=== PATIENT | female | born 1960 | race African-American/Black ===

== ENCOUNTER 2017-08-22 10:39 | Emergency (ER) | payer OTHER, SELFPAY ==
[2017-08-22 11:12] LABS: #Basophils 0.1 thou/uL (0.0-0.2); #Eosinphils 0.2 thou/uL (0.0-0.7); #Lymphocytes 1.5 thou/uL (1.20-3.40); #Monocytes 0.4 thou/uL (0.11-0.59); #Neutrophils 1.9 thou/uL (1.40-6.50); %Basophils 2.3 % (0.0-1.0); %Eosinophils 4.5 % (0.0-10.0); %Lymphocytes 37.6 % (21.0-51.0); %Monocytes 9.1 % (0.0-10.0); %Neutrophils 46.6 % (42.0-75.0); Hemoglobin 15.2 g/dL (12.0-16.0); Mean Corpuscular HGB CONC 32.7 g/dL (32.0-36.0); Mean Corpuscular Hemoglobin 29.6 pg (27.0-31.0); Mean Corpuscular Volume 90.6 fl (81.0-99.0); Mean Platelet Volume 7.9 fL (7.4-10.4); Platelet Count 269 thou/uL (130-400); RBC Distribution Width 12.2 % (11.5-14.5); Red Blood Cell (RBC) Count 5.13 mill/uL (4.20-5.40); White Blood Cell (WBC) Count 4.1 thou/uL (4.8-10.8)
[2017-08-22] MEDS ORDERED: hydrALAZINE 20 MG/ML VIAL ONE (11:15)
[2017-08-22 11:38] LABS: Troponin I Less than 0.010 ng/mL (< 0.028)
[2017-08-22 11:51] LABS: Chloride 106 mmol/L (98-107); Potassium 5.3 mmol/L (3.5-5.1); Sodium 139 mmol/L (136-145)
[2017-08-22 11:52] LABS: Glucose 98 mg/dL (70-105)
[2017-08-22 11:53] LABS: Anion Gap 17 mmol/L (10-20); Carbon Dioxide 21 mmol/L (22-29)
[2017-08-22 11:55] LABS: Calc. Creatinine Clearance 0 mL/min (70-130); Estimated GFR-MDRD 70
[2017-08-22 11:56] LABS: BUN (Urea Nitrogen) 19 mg/dL (9.8-20.1)
== END 2017-08-22 12:58 | disposition home or self-care (01) ==
LOC: ERS 10:39
DX: R00.1 Bradycardia, unspecified (principal); T44.7X5A Adverse effect of beta-adrenoreceptor antagonists, initial encounter; I10 Essential (primary) hypertension; F19.10 Other psychoactive substance abuse, uncomplicated; F32.9 Major depressive disorder, single episode, unspecified; F17.200 Nicotine dependence, unspecified, uncomplicated; Z71.6 Tobacco abuse counseling
CPT/HCPCS: 80048; 84484; 85025; 93005; 96374; 99406; J0360

== ENCOUNTER 2018-01-20 09:46 | Observation (INO) | payer SELFPAY ==
[2018-01-20 10:16] LABS: #Basophils 0.1 thou/uL (0.0-0.2); #Eosinphils 0.7 thou/uL (0.0-0.7); #Lymphocytes 1.5 thou/uL (1.20-3.40); #Monocytes 0.4 thou/uL (0.11-0.59); #Neutrophils 2.7 thou/uL (1.40-6.50); %Eosinophils 13.2 % (0.0-10.0); %Lymphocytes 27.7 % (21.0-51.0); %Monocytes 7.2 % (0.0-10.0); %Neutrophils 50.9 % (42.0-75.0); Hemoglobin 14.8 g/dL (12.0-16.0); Mean Corpuscular HGB CONC 33.1 g/dL (32.0-36.0); Mean Corpuscular Hemoglobin 30.5 pg (27.0-31.0); Mean Corpuscular Volume 92.2 fL (78.0-98.0); Mean Platelet Volume 8.2 fL (7.4-10.4); Platelet Count 347 thou/uL (130-400); RBC Distribution Width 11.7 % (11.5-14.5); Red Blood Cell (RBC) Count 4.85 mill/uL (4.20-5.40); White Blood Cell (WBC) Count 5.2 thou/uL (4.8-10.8)
[2018-01-20 10:41] LABS: CKMB 2.7 ng/mL (0-6.6); Troponin I Less than 0.010 ng/mL (< 0.028)
--- NOTE | 2018-01-20 10:47 | CT ---
CT BRAIN WITHOUT CONTRAST: HISTORY: Slurred speech and left-sided facial droop. FINDINGS: No evidence of acute infarct, hemorrhage, midline shift, or abnormal extraaxial fluid collections is seen. The ventricular size is normal and the basilar cistern is patent. 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 The bony calvarium is intact. The visualized paranasal sinuses and mastoi d air cells are well aerated. IMPRESSION: No CT evidence of acute intracranial process. POS: [facility]
[2018-01-20] MEDS ORDERED: Labetalol HCl 100 MG/20 ML VIAL ONE (11:05)
[2018-01-20 11:06] LABS: AST (SGOT) 25 U/L (5-34)
[2018-01-20 11:07] LABS: ALT (SGPT) 21 U/L (8-55); Alkaline Phosphatase 95 U/L (40-150); Anion Gap 15 mmol/L (10-20); BUN (Urea Nitrogen) 18 mg/dL (9.8-20.1); Bilirubin, Total 0.2 mg/dL (0.2-1.2); CK (CPK) 111 U/L (29-168); Calc. Creatinine Clearance 0 mL/min (70-130); Calcium 9.7 mg/dL (7.8-10.44); Carbon Dioxide 26 mmol/L (22-29); Chloride 104 mmol/L (98-107); Estimated GFR-MDRD 87; Globulin 3.4 g/dL (2.4-3.5); Glucose 130 mg/dL (70-105); Potassium 4.2 mmol/L (3.5-5.1); Protein, Total 7.4 g/dL (6.0-8.3); Sodium 141 mmol/L (136-145)
[2018-01-20 13:12] LABS: Amphetamine Not Detected (NotDetected); Barbiturates Screen Not Detected (NotDetected); Benzodiazepine Screen Not Detected (NotDetected); Cocaine Metabolite Screen Detected (NotDetected); Medtox Control Line Valid? VALID (VALID); Medtox Reader # READER 4; Methadone Not Detected (NotDetected); Methamphetamine Not Detected (NotDetected); Opiate Screen Not Detected (NotDetected); Oxycodone Screen Not Detected (NotDetected); Phencyclidine (PCP) Not Detected (NotDetected); THC/Cannabinoid Screen Not Detected (NotDetected); Tricyclic Screen Not Detected (NotDetected)
[2018-01-20] MEDS ORDERED: Sodium Chloride 0.9% 1,000 ML IV SCH (13:33)
[2018-01-20] MEDS ORDERED: Ondansetron HCl/PF 4 MG/2 ML Vial IVP PRN (13:33)
[2018-01-20] MEDS ORDERED: Ondansetron ODT 4 MG TAB SL PRN (13:33)
[2018-01-20] MEDS ORDERED: Acetaminophen 325 MG TAB PO PRN (13:33)
[2018-01-20 13:55] LABS: Troponin I Less than 0.010 ng/mL (< 0.028)
[2018-01-20 15:19] VITALS: BMI 16.8
[2018-01-20 16:58] LABS: Troponin I Less than 0.010 ng/mL (< 0.028)
[2018-01-20] MEDS ORDERED: hydrALAZINE 20 MG/ML VIAL SLOW IVP PRN (19:14)
[2018-01-20] MEDS ORDERED: Labetalol HCl 100 MG/20 ML VIAL SLOW IVP PRN (19:14)
[2018-01-20] MEDS ORDERED: Atorvastatin Calcium 40 MG TAB PO SCH (21:00)
--- NOTE | 2018-01-20 22:24 | ULT ---
CAROTID ULTRASOUND: 01/20/18 COMPARISON: None. HISTORY: TIA. TECHNIQUE: Multiplanar dyson scale and color doppler images were obtained in a carotid ultrasound. Spectral anal ysis of the doppler waveforms of the visualized vessels were performed. FINDINGS: No significant calcified plaque is seen surrounding either carotid bifurcation. The doppler waveforms are normal bilaterally. Peak systolic velocity in the right ICA is 98 cm/s. Peak systolic velocity in the right CCA is 60 cm/ s. The right ICA/CCA ratio is 1.6. Peak systolic velocity in the left ICA is 67 cm/s. Peak systolic velocity in the left CCA is 67 cm/s. The left ICA/CCA ratio is 1.0. Both vertebral arteries demonstrate antegrade flow without focal stenosis. IMPRESSION: No evidence of hemodynamically significant stenosis. POS: [facility]
--- NOTE | 2018-01-21 02:36 | HP ---
DATE OF ADMISSION: 01/20/2018 PRIMARY CARE PROVIDER: [facility]. CHIEF COMPLAINT: Facial droop and difficulty with speech. HISTORY OF PRESENT ILLNESS: This is a 57-year-old -Serbian female who presents to [facility] complaining of approximately 2 week history of intermittent facial drooping, paresthesias and slurred speech. The patient had noticed symptoms worsening over the last 48-72 hour s. The patient admitted that her blood pressure has been erratic and admits to taking amlodipine 5 m g daily. The patient states she had intermittent difficulty finding words and forming them. The pat carolee states she became concerned given that her mother of complications of a stroke and she is n ow caring for her brother who has also had complications of a stroke. The patient denied any recent fall, trauma, injury, visual disturbance or unilateral weakness of her extremities. The patient admi ts to intermittent use of aspirin, but not on a regular basis. The patient also states a prior histo ry of hyperlipidemia, previously treated with oral medications, now discontinued. The patient does a dmit to smoking up to a pack of cigarettes daily. In the emergency room, the patient underwent gener al evaluation including CT of the brain showing no acute intracranial process. The patient was noted with hypertension with blood pressures in the 170s/90s. The patient received IV labetalol, aspirin 324 mg and intravenous normal saline x1 liter. The patient was transferred to the stroke unit for fu rther observation. PAST MEDICAL HISTORY: 1. Tobacco abuse. 2. Cocaine abuse. 3. Hypertension. 4. Noncompliance. 5. History of paroxysmal atrial fibrillation on chronic anticoagulation with Coumadin, currently, di scontinued. 6. Hyperlipidemia. PAST SURGICAL HISTORY: Status post section. CURRENT MEDICATIONS: Amlodipine 5 mg p.o. daily. ALLERGIES: ABEL INHIBITORS. FAMILY HISTORY: Mother and brother with history of CVA. SOCIAL HISTORY: Patient resides in [place], [place]. Unemployed. Smokes up to a pack of cigarettes elaine ly. Admits to cocaine use. Occasional alcohol use. REVIEW OF SYSTEMS: The following complete review of systems was negative, unless otherwise mentioned in the HPI or below: Constitutional: Weight loss or gain, ability to conduct usual activities. Sk in: Rash, itching. Eyes: Double vision, pain. ENT/Mouth: Nose bleeding, neck stiffness, pain, te nderness. Cardiovascular: Palpitations, dyspnea on exertion, orthopnea. Respiratory: Shortness of breath, wheezing, cough, hemoptysis, fever or night sweats. Gastrointestinal: Poor appetite, abdom inal pain, heartburn, nausea, vomiting, constipation, or diarrhea. Genitourinary: Urgency, frequenc y, dysuria, nocturia. Musculoskeletal: Pain, swelling. Neurologic/Psychiatric: Anxiety, depressio n. Allergy/Immunologic: Skin rash, bleeding tendency. PHYSICAL EXAMINATION: VITAL SIGNS: On admission, blood pressure 149/100, pulse 62, respiratory rate 16, temperature 97.7 d egrees Fahrenheit, O2 saturation 98% on room air. GENERAL APPEARANCE: This is a 57-year-old -Serbian female, alert and oriented x3, pleasant, conversant, in no acute distress. HEENT: Pupils are equal, round, and reactive to light and accommodation. Extraocular muscles are in tact. No scleral icterus, no conjunctival injection. Nares patent. OP is clear. Teeth in fair rep air. NECK: Supple, no cervical adenopathy, no thyromegaly, no carotid bruits, no JVD appreciated. Cervic al spine with full active and passive range of motion. No meningeal signs appreciated. CHEST: Lungs are clear to auscultation bilaterally. CARDIOVASCULAR: S1, S2, without noted murmur, rub or gallop. ABDOMEN: Flat, soft, nontender, nondistended. Bowel sounds are positive in all four quadrants. The re is no hepatosplenomegaly, no abdominal bruits, no rebound or guarding appreciated. EXTREMITIES: Warm and dry with fair turgor. No clubbing, cyanosis or asymmetric edema appreciated. Pulses are palpable distally at the dorsalis pedis, posterior tibial, and popliteal arteries bilater ally. Capillary refill less than 2 seconds. NEUROLOGIC: Cranial nerves II-XII are grossly intact. No focal or lateralizing signs appreciated. PERTINENT LABORATORY AND X-RAY FINDINGS: Basic metabolic profile within normal limits. LFTs within normal limits. Troponin I negative x3. CBC within normal limits. Urine drug screen positive for co haroon. On 01/20/2018, plasma alcohol level less than 10. CT of the brain without contrast dated 01/20/2018 showed no acute intracranial process. EKG dated 01/20/2018 by my interpretation shows a sinus mechan ism with heart rates in the 60s. Attenuated R waves noted in the precordial leads. Normal axis. No acute ST-T wave changes appreciated. ASSESSMENT AND PLAN: 1. Transient ischemic attack. Suspected given patient's history, we will place in observation statu s on the stroke unit and proceed with general stroke rule out. Check MRI of the brain in the a.m. [facility] carotid Doppler study and 2D transthoracic echocardiogram. Check fasting lipid profile. Contin ue aspirin 81 mg p.o. daily. 2. Hypertension, labile. Suspect due to noncompliance in conjunction with cocaine use. We will con tinue amlodipine 10 mg p.o. daily. Serial blood pressure monitoring and titrate to optimal response. 3. Tobacco use. We will offer smoking cessation resources prior to discharge. 4. Cocaine abuse. We will offer resources regarding cessation programs on an outpatient basis. 5. Prophylaxis. Sequential compression devices while in bed. Pepcid 20 mg p.o. b.i.d. 6. Code status is full. Surrogate medical decision maker is the patient's daughter.
[2018-01-21] MEDS ORDERED: Aspirin 81 mg Enteric Coated Tablet PO SCH (09:00)
--- NOTE | 2018-01-21 10:22 | MRI ---
MRI BRAIN WITHOUT CONTRAST: Date: 01/21/18 HISTORY: Slurred speech with left-sided facial droop, TIA. FINDINGS: Correlation is made with the previous day's CT scan. No restricted diffusion is seen. There are foci of T2 prolongation in the periventricular white matte r consistent with mild chronic small vessel ischemic disease. Ventricular size is normal and the basi lar cisterns are patent. No evidence of infarct, hemorrhage, midline shift, or abnormal extra-axial f luid collections are seen. No tonsillar herniation is seen. IMPRESSION: No evidence of acute intracranial process. POS: [facility]
[2018-01-21 11:34] VITALS: TEMP 97.3
[2018-01-21 13:19] VITALS: BP 133/93
--- NOTE | 2018-01-22 02:02 | DIS ---
DATE OF ADMISSION: 01/20/2018 DATE OF DISCHARGE: 01/21/2018 DISCHARGE DIAGNOSES: 1. Hypertensive urgency, resolved. 2. Hypertension, labile. 3. Tobacco abuse. 4. Cocaine abuse. CONSULTATIONS: None. PERTINENT LABORATORY AND X-RAY FINDINGS: Complete metabolic profile within normal limits. Troponin I negative x3. Total cholesterol 186, triglycerides 57, HDL 61, LDL 114. CBC within normal limits. Urine drug screen positive for cocaine on 01/20/2018. CT of the brain without contrast dated 2017, showed no acute intracranial process. Carotid Doppler study dated 01/20/2018, showed no focal stenosis. MRI of the brain dated 01/21/2018, showed chronic ischemic white matter changes without ac [place] process. HOSPITAL COURSE: The patient was observed on the stroke unit after initially presenting with facial paresthesias and questionable dysarthria. The patient underwent general stroke protocol including CT and MRI imaging of the brain, showing no evidence of infarct. The patient underwent a carotid Doppl er study evaluation showing no focal stenosis. The patient was noted with labile hypertension with i nitiation of metoprolol 12.5 mg b.i.d. The patient will need additional titration of her antihyperte nsive regimen on an ongoing basis after discharge. No current evidence to suggest an acute event suc h as TIA or CVA. The patient given education and caution regarding ongoing cocaine use and its ramif ications for uncontrolled hypertension and potential for CVA. I have examined the patient at the dominguez e of discharge and discussed followup instructions. The patient overall clinically stable and ready for discharge on 01/21/2018. DISCHARGE MEDICATIONS: 1. Enteric coated aspirin 81 mg 1 tab p.o. daily. 2. Metoprolol tartrate 12.5 mg p.o. b.i.d. FOLLOWUP: The patient may follow up with [facility] in 7-10 days after discharge. CONDITION ON DISCHARGE: Stable. ACTIVITY: Ad justin. DIET: Heart healthy. CODE STATUS: FULL. DISPOSITION: Home, 01/21/2018.
== END 2018-01-21 14:57 | disposition home or self-care (01) ==
LOC: ERS 09:46 → 2SE 11:21
PROVIDERS: ADMIT Family Medicine; ATTEND Family Medicine
DX: I16.0 Hypertensive urgency (principal); R29.810 Facial weakness; R47.81 Slurred speech; F17.210 Nicotine dependence, cigarettes, uncomplicated; F14.10 Cocaine abuse, uncomplicated; I10 Essential (primary) hypertension; I48.0 Paroxysmal atrial fibrillation; E78.5 Hyperlipidemia, unspecified; Z79.899 Other long term (current) drug therapy; Z88.8 Allergy status to other drugs, medicaments and biological substances; Z91.19 Patient's noncompliance with other medical treatment and regimen
CPT/HCPCS: 36415; 70450; 70551; 80053; 80061; 80306; 80307; 82553; 84484; 85025; 93005; 93880; 96361; 96374; 96376; G0378

== ENCOUNTER 2018-08-10 15:33 | Observation (INO) | payer SELFPAY ==
[2018-08-10] MEDS ORDERED: Acetaminophen 500 MG TAB ONE (15:45)
--- NOTE | 2018-08-10 15:57 | RAD ---
FPortable frontal chest radiograph: 08/10/2018 COMPARISON: 09/17/2016 HISTORY: Chest pain, hypertension FINDINGS: Mild increased linear interstitial density. Minimal hazy density in the costophrenic angle on the right noted, likely on the basis of volume loss. Heart and mediastinal contours are stable. No pneumothorax, pleural fluid, focal consolidation, or alveolar edema. IMPRESSION: No acute findings.
[2018-08-10] MEDS ORDERED: Proparacaine 0.5% Opth 15 ML BOT ONE (16:03)
[2018-08-10 16:04] LABS: Bilirubin Negative (Negative); Blood, Urine Negative (Negative); Clarity CLEAR (Clear); Glucose, Urine (Dipstick) Negative (Negative); Leukocyte Negative (Negative); Nitrite Negative (Negative); Protein, Urine (Dipstick) Negative (Neg-Trace); Specific Gravity, Urine 1.003 (1.002-1.036); Urobilinogen 0.2 mg/dL (0.2-1.0)
[2018-08-10 16:32] LABS: #Basophils 0.1 thou/uL (0.0-0.2); #Eosinphils 0.5 thou/uL (0.0-0.7); #Lymphocytes 1.4 thou/uL (1.20-3.40); #Monocytes 0.4 thou/uL (0.11-0.59); #Neutrophils 2.4 thou/uL (1.40-6.50); %Basophils 2.3 % (0.0-1.0); %Eosinophils 10.6 % (0.0-10.0); %Lymphocytes 29.7 % (21.0-51.0); %Monocytes 7.5 % (0.0-10.0); %Neutrophils 49.9 % (42.0-75.0); Hemoglobin 12.6 g/dL (12.0-16.0); Mean Corpuscular Hemoglobin 28.6 pg (27.0-31.0); Mean Corpuscular Volume 89.4 fL (78.0-98.0); Platelet Count 280 thou/uL (130-400); RBC Distribution Width 12.7 % (11.5-14.5); Red Blood Cell (RBC) Count 4.42 mill/uL (4.20-5.40); White Blood Cell (WBC) Count 4.9 thou/uL (4.8-10.8)
[2018-08-10] MEDS ORDERED: Nitroglycerin 2% Ointment 1 INCH/1 GM Packet ONE (16:41)
[2018-08-10 16:54] LABS: ALT (SGPT) 19 U/L (8-55); AST (SGOT) 27 U/L (5-34); Alkaline Phosphatase 111 U/L (40-150); Anion Gap 10 mmol/L (10-20); BUN (Urea Nitrogen) 10 mg/dL (9.8-20.1); Bilirubin, Total 0.3 mg/dL (0.2-1.2); CK (CPK) 460 U/L (29-168); Calc. Creatinine Clearance 0 mL/min (70-130); Calcium 9.9 mg/dL (7.8-10.44); Carbon Dioxide 32 mmol/L (22-29); Chloride 99 mmol/L (98-107); Estimated GFR-MDRD Greater than 90; Globulin 2.7 g/dL (2.4-3.5); Glucose 100 mg/dL (70-105); Lipase 43 U/L (8-78); Potassium 4.9 mmol/L (3.5-5.1); Protein, Total 6.7 g/dL (6.0-8.3); Sodium 136 mmol/L (136-145)
[2018-08-10] MEDS ORDERED: Ondansetron PF 4 MG/2 ML Vial IVP PRN (17:48)
[2018-08-10] MEDS ORDERED: Bisacodyl 5 MG TAB PO PRN (17:48)
[2018-08-10] MEDS ORDERED: cloNIDine 0.1 MG TAB PO PRN (17:48)
[2018-08-10] MEDS ORDERED: Senokot S 8.6-50 MG TAB PO PRN (17:48)
[2018-08-10] MEDS ORDERED: Nitroglycerin 0.4 MG TAB (25 Tab Bottle) PO PRN (17:48)
[2018-08-10] MEDS ORDERED: Nitroglycerin 0.4 MG TAB (25 Tab Bottle) SL PRN (17:48)
[2018-08-10] MEDS ORDERED: Sodium Chloride 0.65% Nasal 44 ML BOT EA NARE PRN (17:48)
[2018-08-10] MEDS ORDERED: Acetaminophen 500 MG TAB PO PRN (17:48)
[2018-08-10] MEDS ORDERED: hydrALAZINE 20 MG/ML VIAL SLOW IVP PRN (17:48)
[2018-08-10] MEDS ORDERED: Benzonatate 100 MG CAP PO PRN (17:48)
[2018-08-10 18:11] LABS: Alcohol 10 mg/dL (Less than 10); Salicylate Less than 8.0 mg/dL (15.0-30.0)
[2018-08-10 18:30] LABS: Amphetamine Not Detected (NotDetected); Barbiturates Screen Not Detected (NotDetected); Benzodiazepine Screen Not Detected (NotDetected); Cocaine Metabolite Screen Detected (NotDetected); Medtox Reader # READER 1; Methadone Not Detected (NotDetected); Methamphetamine Not Detected (NotDetected); Opiate Screen Not Detected (NotDetected); Phencyclidine (PCP) Not Detected (NotDetected); THC/Cannabinoid Screen Not Detected (NotDetected); Tricyclic Screen Not Detected (NotDetected)
[2018-08-10 18:31] LABS: Medtox Control Line Valid? VALID (VALID); Oxycodone Screen Not Detected (NotDetected)
[2018-08-10] MEDS ORDERED: NIFEdipine XL 30 MG TAB PO SCH (19:30)
[2018-08-10 19:49] VITALS: BMI 20.6
--- NOTE | 2018-08-10 20:07 | HP ---
PRIMARY CARE PHYSICIAN: [facility]. CHIEF COMPLAINT: Chest pain and uncontrolled high blood pressure. HISTORY OF PRESENTING ILLNESS: Ms. Darling is a 58-year-old female with known history of hypertension as well as cocaine abuse, presented to the emergency room with above-mentioned complaint. History is mainly obtained by the patient herself, and electronic medical records have been reviewed. She was last seen on our facility in November 2017 when she had a negative workup for stroke. Ms. Darling reports that for the last 2 weeks, she has been having severe 7/10 intensity chest pain in the left side going to her right side anteriorly. It was not associated with any dizziness, sweating, or palpitations, but she has been having significant vision changes in her right eye. She is or already legally blind in her left eye. She is also experiencing headache, nausea, pain in the neck as well as pain in the right side of the chest. She ran out of her blood pressure medications about 3 days ago. She was on metoprolol. She also admits of using cocaine again about 3 days ago. Upon presentation to the emergency room today, she was found to have uncontrolled hypertension with blood pressure 181/119 and later increasing up to 200/130. She was given nitroglycerin paste, and her symptoms did get better. Because of her complaints of vision changes in her right eye: ER consulted Ophthalmology, Dr. Avinash Anaya. He has seen the patient in the ER. Her right eye pressure was found to be elevated to 55. She was given timolol and pilocarpine and proparacaine drops in the ER by Dr. Anaya. She reports improvement in her visual symptoms. Her blood pressure is under better control as well. Her EKG did not show any acute changes, and cardiac enzymes were unremarkable. Now, she was being admitted for further evaluation and care for chest pain and rule out ACS. She has had last workup done in the form of nuclear medicine stress test in 2017, which was negative. She also had an echocardiogram done in 2017, which showed EF of 65% to 70% and grossly stable and normal cardiac function. She was found to have [id number] tricuspid regurgitation at that time. PAST MEDICAL HISTORY: 1. Hypertension. 2. Drug abuse, mainly cocaine. 3. Medication noncompliance. 4. Tobacco abuse. 5. History of paroxysmal atrial fibrillation. She was on Coumadin, but was taken off it eventually. 6. Dyslipidemia. PAST SURGICAL HISTORY: section. CURRENT MEDICATIONS: Metoprolol twice a day, but she does not know the dose, and she has not been taking it for the last few days. ALLERGIES: ABEL INHIBITORS. FAMILY HISTORY: Mother and brother had history of CVA. SOCIAL HISTORY: She is unemployed and smokes up to half to one pack of cigarettes daily. Admits to cocaine use. She is unemployed. REVIEW OF SYSTEMS: A 14-point review of systems is done. It is negative except for those mentioned in the History and Physical. LABORATORY EXAMINATION: Her labs today show CBC unremarkable. Serum chemistry showed bicarb at 32, creatine kinase 460. Troponin is less than 0.010. BNP is normal at 14. Urinalysis unremarkable. Urine drug screen is positive for cocaine. Plasma alcohol and salicylate levels are within normal limits except for plasma alcohol level slightly elevated at 10. Chest x-ray by my review shows no evidence to suggest pleural effusion, edema, or infiltrate. A 12-lead EKG by my review shows normal sinus rhythm without any acute ST or T-wave changes. QTc interval is 457 milliseconds. Left atrial enlargement is seen. PHYSICAL EXAMINATION: VITAL SIGNS: Upon presentation, blood pressure 181/119, pulse of 90, respirations 18, saturating 95% on room air, and temperature 98.1. GENERAL: No acute distress. Lying comfortably in bed. She is awake, alert, and oriented x3. HEENT: Mucous membrane is moist and pink. No oropharyngeal exudate or erythema. Head is normocephalic and atraumatic. Pupils are equal and reactive to light and accommodation. Extraocular movements intact. NECK: Supple without any lymphadenopathy, JVD, or bruit. CHEST: Clear to auscultation without any wheezing, rales, or rhonchi. HEART: Rate and rhythm are regular without any murmurs, rubs, or gallops. ABDOMEN: Soft, nontender, and nondistended with positive bowel sounds. EXTREMITIES: Free of any cyanosis, clubbing, or edema. NEUROLOGIC: Nonfocal. SKIN: Free of any rashes or bruises. Feels warm and dry to touch. PSYCHIATRIC: Normal affect. IMPRESSION AND PLAN: 1. Chest pain. This is likely secondary to uncontrolled hypertension. This is being exacerbated by her cocaine abuse. The patient has been counseled extensively. We will start her on antihypertensives and obtain a nuclear medicine stress test to rule out acute coronary syndrome or coronary ischemia from cocaine. She will also be admitted with telemetry monitoring. We will continue to trend serial cardiac enzymes and continue transdermal nitroglycerin along with aspirin for now. Avoid beta blockers, given cocaine abuse. 2. Acute glaucoma. I am not sure if it is angle-closure or not. Dr. Avinash Anaya has prescribed medications for her including Alphagan eyedrops as well as Diamox to reduce the pressure. We will continue that. Continue the timolol eyedrops as ordered by Dr. Anaya as well. We appreciate his recommendations. 3. Hypertensive urgency. We will start the patient on Procardia as well as hydralazine for now. Avoid beta blockers, given her cocaine abuse on and off and she is allergic to ABEL inhibitors. For now overnight, we will continue the transdermal nitroglycerin as well. Further titration based on her response. 4. Dyslipidemia. Check lipid panel. 5. Noncompliance. The patient has been counseled extensively against it. 6. Cocaine abuse. Once again, I discussed the effects of cocaine on her body, which can result in stroke, renal failure, as well as myocardial infarction. The patient understood and will definitely try to quit. 7. Deep venous thrombosis and gastrointestinal prophylaxis. DISPOSITION: Ms. Darling is currently being admitted to the hospital for chest pain and hypertensive urgency as well as acute glaucoma. She is currently under observation status. Further management will depend upon her clinical course. Job ID: [id number]
[2018-08-10] MEDS ORDERED: diphenhydrAMINE 12.5 MG/5 ML UDCUP PO SCH (20:19)
[2018-08-10] MEDS ORDERED: Melatonin 3 MG TAB PO PRN (20:20)
[2018-08-10] MEDS ORDERED: diphenhydrAMINE 25 MG CAP PO SCH (20:30)
[2018-08-10 20:35] LABS: Troponin I Less than 0.010 ng/mL (< 0.028)
[2018-08-10] MEDS: Brimonidine Tartrate 0.2% Ophth Soln 5 ml Bottle EA EYE SCH (21:10)
[2018-08-10] MEDS: hydrALAZINE 25 MG TAB PO SCH (21:13)
[2018-08-10] MEDS: Timolol 0.5% Ophth Soln 5 ml Bottle EA EYE SCH (21:17)
[2018-08-10] MEDS: Nitroglycerin 2% Ointment 1 INCH/1 GM Packet TOP SCH (22:43)
[2018-08-10 23:48] LABS: Troponin I Less than 0.010 ng/mL (< 0.028)
[2018-08-10] MEDS ORDERED: AcetaZOLAMIDE 250 MG TAB PO SCH (23:59)
[2018-08-11] MEDS: AcetaZOLAMIDE 250 MG TAB PO SCH ×3 (00:29→11:28)
[2018-08-11] MEDS: Nitroglycerin 2% Ointment 1 INCH/1 GM Packet TOP SCH (05:59)
[2018-08-11 06:31] LABS: #Basophils 0.1 thou/uL (0.0-0.2); #Eosinphils 0.6 thou/uL (0.0-0.7); #Lymphocytes 2.2 thou/uL (1.20-3.40); #Monocytes 0.4 thou/uL (0.11-0.59); #Neutrophils 1.3 thou/uL (1.40-6.50); %Basophils 1.7 % (0.0-1.0); %Eosinophils 13.8 % (0.0-10.0); %Lymphocytes 47.3 % (21.0-51.0); %Monocytes 9.1 % (0.0-10.0); %Neutrophils 28.1 % (42.0-75.0); Hemoglobin 13.2 g/dL (12.0-16.0); Mean Corpuscular HGB CONC 32.7 g/dL (32.0-36.0); Mean Corpuscular Hemoglobin 29.4 pg (27.0-31.0); Mean Corpuscular Volume 89.8 fL (78.0-98.0); Mean Platelet Volume 8.7 fL (7.4-10.4); Platelet Count 271 thou/uL (130-400); Red Blood Cell (RBC) Count 4.48 mill/uL (4.20-5.40); White Blood Cell (WBC) Count 4.7 thou/uL (4.8-10.8)
[2018-08-11 06:53] LABS: Anion Gap 11 mmol/L (10-20); BUN (Urea Nitrogen) 11 mg/dL (9.8-20.1); Calc. Creatinine Clearance 84 mL/min (70-130); Calcium 9.6 mg/dL (7.8-10.44); Carbon Dioxide 27 mmol/L (22-29); Cardiac Risk 2.9 (Less than 4.5); Chloride 106 mmol/L (98-107); Cholesterol 219 mg/dl (< 200 Desired); Estimated GFR-MDRD Greater than 90; Glucose 94 mg/dL (70-105); HDL Cholesterol 75 mg/dL (>60 Neg Risk); LDL Cholesterol, Calculated 126 mg/dL; Potassium 3.7 mmol/L (3.5-5.1); Sodium 140 mmol/L (136-145); Triglycerides 89 mg/dL (Less than 150)
[2018-08-11] MEDS ORDERED: ADENOSINE 60 MG/20 ML VIAL ONE (08:47)
[2018-08-11] MEDS ORDERED: Aspirin 325 mg Enteric Coated Tablet PO SCH (09:00)
[2018-08-11] MEDS ORDERED: NIFEdipine XL 30 MG TAB PO SCH (09:00)
[2018-08-11] MEDS ORDERED: Enoxaparin Sodium 40 MG/0.4 ML SYRINGE SC SCH (09:00)
--- NOTE | 2018-08-11 10:10 | NM ---
FNM Cardiac Stress W EF WF History: [Chest pain. Dyslipidemia, smoker] Comparison: Nuclear medicine stress test from 2017 Findings: Stress and rest was performed after the intravenous administration of 29.9 and 11 mCi techn etium 99m sestamibi, respectively. No scar or ischemia. Normal wall motion. Normal ejection fraction of 79%. Impression: Normal examination cardiac stress test and ejection fraction.
[2018-08-11] MEDS: Brimonidine Tartrate 0.2% Ophth Soln 5 ml Bottle EA EYE SCH (10:22)
[2018-08-11] MEDS: hydrALAZINE 25 MG TAB PO SCH (10:22)
[2018-08-11] MEDS: Timolol 0.5% Ophth Soln 5 ml Bottle EA EYE SCH (10:23)
[2018-08-11 11:54] VITALS: BP 114/80; TEMP 98.5
--- NOTE | 2018-08-12 04:56 | DIS ---
DATE OF ADMISSION: 08/10/2018 DATE OF DISCHARGE: 08/11/2018 DISCHARGE DIAGNOSES: 1. Chest pain secondary to uncontrolled hypertension and cocaine use, improved. 2. Acute glaucoma, improved. 3. Hypertensive urgency, resolved. 4. Cocaine abuse, chronic. 5. Dyslipidemia. 6. Medication noncompliance. CONSULTATIONS: Dr. Avinash Anaya with ophthalmology service. PERTINENT LAB AND X-RAY FINDINGS: Total CK 460. Troponin I negative x3. BNP 14. Total cholesterol 219, triglycerides 89, HDL 75, LDL 126, lipase 43. CBC within normal limits. Urinalysis negative. Urine drug screen dated 08/10/2018, positive for cocaine. Plasma alcohol level 10. Portable chest x-ray dated 08/10/2018 showed no acute cardiopulmonary process. Cardiolite stress test dated 08/11/2018, showed no evidence for reversible or fixed ischemia with calculated ejection fraction of 79%. HOSPITAL COURSE: The patient was observed on the telemetry unit after initially presenting with chest pain and hypertension. The patient positive for cocaine on urine drug screen with a history of chronic cocaine use and noncompliance. The patient underwent serial troponin I which was negative x3, proceeding to Cardiolite stress testing showing no evidence of reversible or fixed ischemia with calculated ejection fraction of 79%. The patient was treated with aspirin and transdermal nitroglycerin as well as initiated on antihypertensive regimen. The patient was also evaluated due to visual disturbance and visual changes in the context of hypertensive urgency. The patient was evaluated by ophthalmology service showing evidence of elevated intra-ocular pressures. The patient was placed on Diamox as well as Alphagan and Timolol eyedrops. The patient had re-evaluation of her intra-ocular pressure showing decreased levels by the time of discharge. The patient was cautioned regarding ongoing cocaine use and need for compliance with antihypertensive medications. The patient verbalized understanding and in agreement. I have examined the patient at the time of discharge and discussed followup instructions. The patient overall clinically stable and ready for discharge on 08/11/2018. DISCHARGE MEDICATIONS: 1. Metoprolol tartrate 25 mg p.o. b.i.d. 2. Diamox 250 mg p.o. q.6 hours x5 days. 3. Alphagan 0.2% 1 drop to each eye b.i.d. 4. Timoptic 0.5% 1 drop to each eye b.i.d. FOLLOWUP: The patient may follow up with her primary care provider at [facility] within 7 days of discharge. The patient will follow up with Dr. Avinash Anaya with ophthalmology service and to call his office for appointment time and date. CONDITION ON DISCHARGE: Stable. ACTIVITY: Ad-justin. DIET: Heart healthy. CODE STATUS: Full. DISPOSITION: Home, 08/11/2018. Job ID: [id number]
== END 2018-08-11 13:37 | disposition home or self-care (01) ==
LOC: ERS 15:33 → 2SW 17:37
PROVIDERS: ADMIT Internal Medicine; ATTEND Internal Medicine
DX: I16.0 Hypertensive urgency (principal); F14.10 Cocaine abuse, uncomplicated; I10 Essential (primary) hypertension; H40.9 Unspecified glaucoma; H54.8 Legal blindness, as defined in USA; I48.0 Paroxysmal atrial fibrillation; E78.5 Hyperlipidemia, unspecified; F17.210 Nicotine dependence, cigarettes, uncomplicated; Z91.14 Patient's other noncompliance with medication regimen; Z88.8 Allergy status to other drugs, medicaments and biological substances; Z79.899 Other long term (current) drug therapy; Z98.890 Other specified postprocedural states
CPT/HCPCS: 36415; 71045; 78452; 80048; 80053; 80061; 80306; 80307; 81003; 82550; 83690; 83880; 84484; 85025; 90471; 90732; 93005; 93017; 96372; 99406; A9500; G0009; G0378; J0153; J1650; Q0163

== ENCOUNTER 2019-05-28 18:37 | Emergency (ER) | payer SELFPAY ==
[2019-05-28 19:27] LABS: #Basophils 0.1 thou/uL (0.0-0.2); #Eosinphils 0.5 thou/uL (0.0-0.7); #Lymphocytes 1.8 thou/uL (1.20-3.40); #Monocytes 0.4 thou/uL (0.11-0.59); #Neutrophils 2.8 thou/uL (1.40-6.50); %Basophils 2.3 % (0.0-1.0); %Eosinophils 8.5 % (0.0-10.0); %Lymphocytes 32.9 % (21.0-51.0); %Monocytes 6.7 % (0.0-10.0); %Neutrophils 49.6 % (42.0-75.0); Hemoglobin 13.3 g/dL (12.0-16.0); Mean Corpuscular HGB CONC 33.3 g/dL (32.0-36.0); Mean Corpuscular Hemoglobin 29.2 pg (27.0-31.0); Mean Corpuscular Volume 87.7 fL (78.0-98.0); Mean Platelet Volume 8.1 fL (7.4-10.4); Platelet Count 330 thou/uL (130-400); RBC Distribution Width 12.4 % (11.5-14.5); Red Blood Cell (RBC) Count 4.55 mill/uL (4.20-5.40); White Blood Cell (WBC) Count 5.6 thou/uL (4.8-10.8)
--- NOTE | 2019-05-28 19:36 | CT ---
CT BRAIN NONCONTRAST: DATE: 05/28/2019 HISTORY: 59-year-old female with hypertension presents with blurred vision and possibly altered mental status. COMPARISON: 01/20/2018 FINDINGS: There is no evidence of acute intra-axial or extra-axial hemorrhage. There is no midline shift or any other mass effect. There is no extra-axial fluid collection. There is no evidence of obstructive hydrocephalus. Calvarium is intact. Small old lacunar infarction involving head of left caudate nucle us and adjacent anterior portion of left basal ganglia. No interval change overall. IMPRESSION: 1. No acute intracranial findings. 2. Old lacunar infarction at left corpus striatum.
[2019-05-28 19:48] LABS: Acetaminophen Less than 6.0 mcg/mL (10.0-30.0); Alcohol 200 mg/dL (Less than 10); Salicylate Less than 8.0 mg/dL (15.0-30.0)
[2019-05-28 19:58] LABS: ALT (SGPT) 21 U/L (8-55); AST (SGOT) 25 U/L (5-34); Albumin 4.6 g/dL (3.5-5.0); Alkaline Phosphatase 103 U/L (40-110); Anion Gap 16 mmol/L (10-20); BUN (Urea Nitrogen) 8 mg/dL (9.8-20.1); Bilirubin, Total 0.2 mg/dL (0.2-1.2); Calc. Creatinine Clearance 0 mL/min (70-130); Calcium 9.9 mg/dL (7.8-10.44); Carbon Dioxide 25 mmol/L (22-29); Chloride 104 mmol/L (98-107); Estimated GFR-MDRD Greater than 90; Globulin 2.6 g/dL (2.4-3.5); Glucose 114 mg/dL (70-105); Potassium 3.7 mmol/L (3.5-5.1); Protein, Total 7.2 g/dL (6.0-8.3); Sodium 141 mmol/L (136-145)
[2019-05-28 20:31] LABS: Bilirubin Negative (Negative); Blood, Urine Negative (Negative); Clarity Clear (Clear); Glucose, Urine (Dipstick) Normal (Negative); Leukocyte Negative Leu/uL (Negative); Nitrite Negative (Negative); Protein, Urine (Dipstick) Negative (Neg-Trace); Urobilinogen Normal mg/dL (Less than 2)
[2019-05-28 20:46] LABS: Amphetamine Not Detected (NotDetected); Barbiturates Screen Not Detected (NotDetected); Benzodiazepine Screen Not Detected (NotDetected); Cocaine Metabolite Screen Detected (NotDetected); Medtox Reader # READER 4; Methadone Not Detected (NotDetected); Methamphetamine Not Detected (NotDetected); Opiate Screen Not Detected (NotDetected); Oxycodone Screen Not Detected (NotDetected); Phencyclidine (PCP) Not Detected (NotDetected); THC/Cannabinoid Screen Not Detected (NotDetected); Tricyclic Screen Not Detected (NotDetected)
[2019-05-28 20:47] LABS: Medtox Control Line Valid? VALID (VALID)
== END 2019-05-28 21:33 | disposition home or self-care (01) ==
LOC: ERS 18:37
DX: I10 Essential (primary) hypertension (principal); F10.129 Alcohol abuse with intoxication, unspecified; R73.03 Prediabetes; R09.81 Nasal congestion; F32.9 Major depressive disorder, single episode, unspecified; F14.10 Cocaine abuse, uncomplicated; F17.210 Nicotine dependence, cigarettes, uncomplicated; Z79.899 Other long term (current) drug therapy
CPT/HCPCS: 70450; 80053; 80306; 80307; 81003; 84484; 85025; 93005

== ENCOUNTER 2019-08-02 11:54 | Emergency (ER) | payer SELFPAY ==
[2019-08-02] MEDS ORDERED: Ketorolac Tromethamine 30 MG/ML VIAL ONE (12:37)
[2019-08-02] MEDS ORDERED: Acetaminophen 500 MG TAB ONE (12:38)
[2019-08-02 12:48] LABS: #Basophils 0.1 thou/uL (0.0-0.2); #Eosinphils 0.4 thou/uL (0.0-0.7); #Lymphocytes 1.9 thou/uL (1.20-3.40); #Monocytes 0.3 thou/uL (0.11-0.59); #Neutrophils 2.8 thou/uL (1.40-6.50); %Basophils 1.9 % (0.0-1.0); %Eosinophils 7.8 % (0.0-10.0); %Monocytes 5.9 % (0.0-10.0); %Neutrophils 50.4 % (42.0-75.0); Hemoglobin 14.3 g/dL (12.0-16.0); Mean Corpuscular HGB CONC 33.2 g/dL (32.0-36.0); Mean Corpuscular Hemoglobin 30.2 pg (27.0-31.0); Mean Platelet Volume 8.3 fL (7.4-10.4); Platelet Count 311 thou/uL (130-400); RBC Distribution Width 12.3 % (11.5-14.5); Red Blood Cell (RBC) Count 4.72 mill/uL (4.20-5.40); White Blood Cell (WBC) Count 5.5 thou/uL (4.8-10.8)
--- NOTE | 2019-08-02 12:51 | RAD ---
Chest one view HISTORY: Chest pain. COMPARISON: 08/10/2018. FINDINGS: Cardiac silhouette is magnified by projection. Pulmonary vasculature is unremarkable. Lungs remain hyperinflated. Mediastinum is midline. No lobar consolidation or evidence of pneumothorax. youth nutritional monitor leads overlie the chest. IMPRESSION: No active cardiopulmonary abnormalities are demonstrated.
[2019-08-02 12:58] LABS: ALT (SGPT) 22 U/L (8-55); AST (SGOT) 27 U/L (5-34); Albumin 4.6 g/dL (3.5-5.0); Alkaline Phosphatase 110 U/L (40-110); Anion Gap 14 mmol/L (10-20); BUN (Urea Nitrogen) 14 mg/dL (9.8-20.1); Bilirubin, Total 0.4 mg/dL (0.2-1.2); Calc. Creatinine Clearance 0 mL/min (70-130); Carbon Dioxide 25 mmol/L (22-29); Chloride 102 mmol/L (98-107); Estimated GFR-MDRD Greater than 90; Glucose 89 mg/dL (70-105); Potassium 4.1 mmol/L (3.5-5.1); Protein, Total 7.6 g/dL (6.0-8.3); Sodium 137 mmol/L (136-145)
[2019-08-02 15:23] LABS: Troponin I Less than 0.010 ng/mL (< 0.028)
--- NOTE | 2019-08-04 15:09 | EKG ---
Test Reason : Blood Pressure : / mmHG Vent. Rate : 076 BPM Atrial Rate : 076 BPM P-R Int : 158 ms QRS Dur : 072 ms QT Int : 418 ms P-R-T Axes : 066 018 052 degrees QTc Int : 470 ms Normal sinus rhythm Normal ECG No changes Confirmed by YINA SINGH DO ([id number]), managing editor DAVID LARA ([id number]) on 08/04/2019 3:09:31 PM Referred By: Confirmed By:YINA SINGH DO
--- NOTE | 2019-08-04 15:12 | EKG ---
Test Reason : CHEST PAIN Blood Pressure : / mmHG Vent. Rate : 077 BPM Atrial Rate : 077 BPM P-R Int : 146 ms QRS Dur : 078 ms QT Int : 412 ms P-R-T Axes : 067 037 056 degrees QTc Int : 466 ms Normal sinus rhythm Possible Left atrial enlargement Borderline ECG Confirmed by YINA SINGH DO ([id number]), research editor DAVID LARA ([id number]) on 08/04/2019 3:11:58 PM Referred By: Confirmed By:YINA SINGH DO
== END 2019-08-02 16:12 | disposition left against medical advice (07) ==
LOC: ERS 11:54
DX: R07.9 Chest pain, unspecified (principal); F14.10 Cocaine abuse, uncomplicated; I10 Essential (primary) hypertension; F32.9 Major depressive disorder, single episode, unspecified; F17.210 Nicotine dependence, cigarettes, uncomplicated
CPT/HCPCS: 36415; 71045; 80053; 84484; 85025; 93005; 96374; J1885

== ENCOUNTER 2020-01-03 09:15 | Observation (INO) | payer BC, OTHER ==
[2020-01-03] MEDS ORDERED: Acetaminophen 500 MG TAB ONE (09:48)
[2020-01-03] MEDS ORDERED: Aspirin Chewable 81 MG TAB ONE (09:48)
[2020-01-03 10:04] LABS: Hemoglobin 15.2 g/dL (12.0-16.0); Mean Corpuscular HGB CONC 32.1 g/dL (32.0-36.0); Mean Corpuscular Hemoglobin 29.8 pg (27.0-31.0); Mean Corpuscular Volume 92.6 fL (78.0-98.0); Platelet Count 272 thou/uL (130-400); RBC Distribution Width 12.5 % (11.5-14.5); Red Blood Cell (RBC) Count 5.11 mill/uL (4.20-5.40); White Blood Cell (WBC) Count 3.6 thou/uL (4.8-10.8)
--- NOTE | 2020-01-03 10:04 | RAD ---
XR Chest 1 View Portable History: Chest pain Comparison: Radiograph July 2019 Findings: Mild background lung hyperinflation. No pneumothorax. No effusion. No confluent airspace co nsolidation. No acute osseous abnormality. Cardiac silhouette and mediastinal contours are within normal limits. Impression: No acute intrathoracic abnormality.
[2020-01-03 10:21] LABS: ALT (SGPT) 36 U/L (8-55); AST (SGOT) 36 U/L (5-34); Albumin 4.1 g/dL (3.5-5.0); Alkaline Phosphatase 76 U/L (40-110); Anion Gap 14 mmol/L (10-20); BUN (Urea Nitrogen) 18 mg/dL (9.8-20.1); Bilirubin, Total 0.3 mg/dL (0.2-1.2); CK (CPK) 107 U/L (29-168); Calc. Creatinine Clearance 0 mL/min (70-130); Calcium 9.3 mg/dL (7.8-10.44); Carbon Dioxide 23 mmol/L (22-29); Chloride 106 mmol/L (98-107); Estimated GFR-MDRD Greater than 90; Globulin 3.1 g/dL (2.4-3.5); Glucose 91 mg/dL (70-105); Potassium 4.4 mmol/L (3.5-5.1); Protein, Total 7.2 g/dL (6.0-8.3); Sodium 139 mmol/L (136-145)
[2020-01-03 10:22] LABS: MDiff Complete? YES
[2020-01-03 10:23] LABS: Band 1 % (5-11); Eosinophils 8 % (0-10); Lymphocytes 34 % (21-51); Monocytes 6 % (0-10); Neutrophil 51 % (42-75); Platelet Morphology Comment Appears Decreased; RBC Morphology Normal
--- NOTE | 2020-01-03 11:33 | PDOC.HHP ---
Hospitalist HPI - History of Present Illness Chest pain and headache History of Present Illness: PCP: [facility] The patient is a 59-year-old female with a past medical history significant for hypertension, hyperlipidemia, TIA, smoker, former cocaine abuser and glaucoma that presents to the ER for the above complaint. The patient reports the onset of acute chest pain approximately 3.5 hours prior to arrival. Her chest pain is located on her left chest, described as dull pressure, persistent, exacerbated and relieved by nothing. The patient denies any heart palpitations or swelling to her lower extremities. She denies shortness of breath or wheezing. No history of asthma or COPD. Denies using any illicit drugs in the past several months. The patient also reports a left-sided headache, described aching and throbbing, denies any focal weakness, change in vision, difficulty speaking or swallowing. Denies any neck stiffness, fever, jaw claudication. ED Course: VITAL SIGNS ThuJan 03, 2020 09:17 WADE Martin Tori BP: 147/101, Pulse: 75, Resp: 18, Temp: 97.3 (Oral), Pain: 7, O2 sat: 100 on ( Room Air), Time: 01/03/2020 09:17. VITAL SIGNS ThuJan 03, 2020 09:35 WADE Davila Jessica BP: 147/98, MAP: 114, Pulse: 65, Resp: 16 (Non-Labored), Pain: 7, O2 sat: 98 on (Room Air), Time: 01/03/2020 09:35. EKG normal sinus rhythm, no ST elevations. Initial troponin negative. Chest x- ray negative for acute cardiopulmonary process. Tylenol Extra Strength 1 g Oral Given 09:51 01/03/2020 aspirin oral 324 mg Oral Given 09:51 01/03/2020 Hospitalist ROS - Review of Systems All other systems reviewed; all pertinent +/- noted in HPI/Subj - Medication Medications: FLUoxetine capsule : Strength - 10 mg : ORAL Patient Dose: unk. atorvastatin tablet : Strength - 10 mg : ORAL Patient Dose: unk. amLODIPine tablet : Strength - 10 mg : ORAL Patient Dose: unk Allergies: ABEL Inhibitors Hospitalist History - Past Medical History Source: patient, RN notes reviewed Other Medical History: MEDICAL HISTORY ThuJan 03, 2020 09:36 WADE Davila Jessica Past medical history includes history of hypertension, Glaucoma, high cholesterol, TIA. FEMALE SURGICAL HISTORY ThuJan 03, 2020 09:36 WADE Davila Jessica Surgical history of section, Notes: x 1. PSYCHIATRIC HISTORY ThuJan 03, 2020 09:36 WADE Davila Jessica Psychiatric history includes, depression. SOCIAL HISTORY ThuJan 03, 2020 09:36 WADE Davila Jessica Patient currently uses tobacco, smokes cigarettes, daily, Patient smokes 1/2 packs per day, Patient drinks socially, every week, Patient is a former drug user, abused cocaine. FAMILY HISTORY Contributory for cardiac and COPD. - Exam General Appearance: NAD, awake alert Eye - other findings: left eye blind. Right eye PERRL ENT: normocephalic atraumatic, moist mucosa Neck: supple, symmetric, no JVD Heart: RRR, no murmur, no gallops, no rubs, normal peripheral pulses Respiratory: CTAB, no wheezes, no ronchi, normal chest expansion, no tachypnea Respiratory - other findings: reproducible chest pain w/ palpation to 6th rib Midclavicular line Gastrointestinal: soft, non-tender, normal bowel sounds, no guarding, no rigidity Extremities: no cyanosis, no edema Skin: normal turgor, no lesions Neurological: cranial nerve grossly intact, normal sensation to touch, no weakness, no focal deficits Musculoskeletal: normal tone, normal strength Psychiatric: normal affect, A&O x 3 Hospitalist Results - Labs Result Diagrams: 01/03/20 09:31 01/03/20 09:31 Lab results: WBC 3.6 thou/uL (4.8-10.8) L 01/03/20 09:31 Hgb 15.2 g/dL (12.0-16.0) 01/03/20 09:31 Hct 47.4 % (36.0-47.0) H 01/03/20 09:31 MCV 92.6 fL (78.0-98.0) 01/03/20 09:31 Plt Count 272 thou/uL (130-400) 01/03/20 09:31 Band Neuts % (Manual) 1 % (5-11) L 01/03/20 09:31 Sodium 139 mmol/L (136-145) 01/03/20 09:31 Potassium 4.4 mmol/L (3.5-5.1) 01/03/20 09:31 Chloride 106 mmol/L (98-107) 01/03/20 09:31 Carbon Dioxide 23 mmol/L (22-29) 01/03/20 09:31 BUN 18 mg/dL (9.8-20.1) 01/03/20 09:31 Creatinine 0.76 mg/dL (0.6-1.1) 01/03/20 09:31 Glucose 91 mg/dL (70-105) 01/03/20 09:31 Calcium 9.3 mg/dL (7.8-10.44) 01/03/20 09:31 Total Bilirubin 0.3 mg/dL (0.2-1.2) 01/03/20 09:31 AST 36 U/L (5-34) H 01/03/20 09:31 ALT 36 U/L (8-55) 01/03/20 09:31 Alkaline Phosphatase 76 U/L (40-110) 01/03/20 09:31 Creatine Kinase 107 U/L (29-168) 01/03/20 09:31 Troponin I Less than 0.010 ng/mL (< 0.028) 01/03/20 09:31 Serum Total Protein 7.2 g/dL (6.0-8.3) 01/03/20 09:31 Albumin 4.1 g/dL (3.5-5.0) 01/03/20 09:31 - EKG Interpretation EK lead EKG interpreted by Emergency Department Physician at time of study, 12 lead EKG shows normal sinus rhythm, Rate (beats per minute): 67, with no ectopics, T waves normal, [place] normal. - Radiology Interpretation Chest x-ray Status: report reviewed by de Hospitalist H&P A/P - Problem (1) Chest pain Code(s): R07.9 - CHEST PAIN, UNSPECIFIED Status: Acute Assessment and Plan: We will admit the patient to the telemetry floor, observation status. Expected length of stay less than 2 midnights. Patient presented mildly hypertensive, normal pulse, normal respirations, afebrile, normal O2 sat. EKG normal sinus rhythm, no ST elevations. Chest x-ray negative for acute process. Initial troponin negative. Heart score 4. Well score PE 0. Will trend troponins, check TSH, BNP, fasting lipid profile, UA. Continue aspirin and start statin. Patient has history of cocaine abuse, denies any recent use. Will check UDS. Order nuc med stress test. N.p.o. after midnight. (2) Headache Code(s): R51 - HEADACHE Status: Acute Assessment and Plan: Patient's symptoms resolved with Tylenol. Has history of glaucoma with left eye blindness. On exam, no signs of meningitis, stroke, temporal arteritis, elevated IOP. (3) HTN (hypertension) Code(s): I10 - ESSENTIAL (PRIMARY) HYPERTENSION Status: Chronic Assessment and Plan: Patient presented mildly hypertensive. Takes unknown dose of amlodipine at home. We will continue to monitor blood pressure. Will wait on nursing to reconcile medications. We will add antihypertensives as necessary. (4) HLD (hyperlipidemia) Code(s): E78.5 - HYPERLIPIDEMIA, UNSPECIFIED Status: Chronic Assessment and Plan: Patient takes unknown dose of atorvastatin at home. Will start atorvastatin 40 mg. Will check fasting lipid profile. (5) Tobacco abuse Code(s): Z72.0 - TOBACCO USE Status: Chronic Assessment and Plan: Patient admits to half pack per day habit. Unwilling to quit. Declines NRT therapy. 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 (6) Glaucoma Code(s): H40.9 - UNSPECIFIED GLAUCOMA Status: Chronic Assessment and Plan: She is left eye blind. Reports having glaucoma in her right eye. Takes no home medications for this. We will continue to monitor. - Plan Plan: SCDs for DVT prophylaxis. No GI prophylaxis. Full code. Designated medical decision-maker, Sami Ennis, . Discussed case with Dr. Petit.
[2020-01-03] MEDS ORDERED: Nitroglycerin 0.4 MG TAB (25 Tab Bottle) PO PRN (11:46)
[2020-01-03] MEDS ORDERED: Calcium Carbonate 500 MG ChewTAB PO PRN (11:48)
[2020-01-03] MEDS ORDERED: Senokot S 8.6-50 MG TAB PO PRN (11:48)
[2020-01-03] MEDS ORDERED: Ondansetron ODT 4 MG TAB PO PRN (11:48)
[2020-01-03] MEDS ORDERED: Acetaminophen 650 MG Suppository PR PRN (11:48)
[2020-01-03] MEDS ORDERED: Ondansetron PF 4 MG/2 ML Vial IVP PRN (11:48)
[2020-01-03 12:58] LABS: Bilirubin Negative (Negative); Blood, Urine Negative (Negative); Clarity Clear (Clear); Glucose, Urine (Dipstick) Normal (Negative); Ketone, Urine Negative (Negative); Nitrite Negative (Negative); Protein, Urine (Dipstick) Negative (Neg-Trace); RBC/HPF 0-3 HPF (0-3); Specific Gravity, Urine 1.023 (1.002-1.036); Squamous Epithelial 0-3 HPF (0-3); Urobilinogen Normal mg/dL (Less than 2); WBC/HPF 0-3 HPF (0-3); pH, Urine 5.5 (5.0-9.0)
[2020-01-03 13:04] LABS: Leukocyte Trace (Negative)
[2020-01-03 13:06] LABS: Troponin I Less than 0.010 ng/mL (< 0.028)
[2020-01-03 13:07] LABS: Bacteria/HPF Rare-Few HPF (None Seen)
[2020-01-03 14:38] VITALS: BMI 18.1
[2020-01-03 15:14] LABS: Amphetamine Not Detected (NotDetected); Barbiturates Screen Not Detected (NotDetected); Benzodiazepine Screen Not Detected (NotDetected); Cocaine Metabolite Screen Detected (NotDetected); Medtox Control Line Valid? VALID (VALID); Medtox Reader # READER 1; Methadone Not Detected (NotDetected); Methamphetamine Not Detected (NotDetected); Opiate Screen Not Detected (NotDetected); Oxycodone Screen Not Detected (NotDetected); Phencyclidine (PCP) Not Detected (NotDetected); THC/Cannabinoid Screen Not Detected (NotDetected); Tricyclic Screen Not Detected (NotDetected)
[2020-01-03 15:53] LABS: Troponin I Less than 0.010 ng/mL (< 0.028)
[2020-01-03] MEDS: Acetaminophen 325 MG TAB PO PRN (17:30)
[2020-01-03 18:29] LABS: SARS-CoV-2 MS2 Positive; SARS-CoV-2 N Gene Negative; SARS-CoV-2 S Gene Negative; SARS-CoV-2 by NAA Not Detected (NotDetected); SARS-CoV-2 orf1ab Negative
[2020-01-03] MEDS ORDERED: Atorvastatin Calcium 40 MG TAB PO SCH (21:00)
[2020-01-04] MEDS: Sodium Chloride 0.9% 1,000 ML IV SCH ×2 (00:15→13:31)
[2020-01-04 05:17] LABS: Anion Gap 14 mmol/L (10-20); BUN (Urea Nitrogen) 16 mg/dL (9.8-20.1); Calc. Creatinine Clearance 66 mL/min (70-130); Calcium 8.8 mg/dL (7.8-10.44); Carbon Dioxide 21 mmol/L (22-29); Cardiac Risk 2.5 (Less than 4.5); Chloride 107 mmol/L (98-107); Cholesterol 207 mg/dl (< 200 Desired); Estimated GFR-MDRD Greater than 90; Glucose 98 mg/dL (70-105); HDL Cholesterol 82 mg/dL (>60 Neg Risk); LDL Cholesterol, Calculated 111 mg/dL; Potassium 3.9 mmol/L (3.5-5.1); Sodium 138 mmol/L (136-145); Triglycerides 72 mg/dL (Less than 150)
[2020-01-04 05:30] LABS: Band 2 % (5-11); Eosinophils 9 % (0-10); Hemoglobin 14.2 g/dL (12.0-16.0); Lymphocytes 32 % (21-51); MDiff Complete? YES; Mean Corpuscular HGB CONC 30.7 g/dL (32.0-36.0); Mean Corpuscular Volume 94.5 fL (78.0-98.0); Mean Platelet Volume 9.4 fL (7.4-10.4); Monocytes 1 % (0-10); Neutrophil 55 % (42-75); Platelet Count 233 thou/uL (130-400); Platelet Morphology Comment Appears Adequate; Promyelocytes 1 % (0-0); RBC Distribution Width 12.6 % (11.5-14.5); RBC Morphology Normal; Red Blood Cell (RBC) Count 4.87 mill/uL (4.20-5.40); White Blood Cell (WBC) Count 4.4 thou/uL (4.8-10.8)
[2020-01-04] MEDS: Acetaminophen 325 MG TAB PO PRN ×2 (07:19→13:30)
[2020-01-04] MEDS ORDERED: Aspirin 81 mg Enteric Coated Tablet PO SCH (09:00)
[2020-01-04] MEDS ORDERED: ADENOSINE 60 MG/20 ML VIAL ONE (09:03)
[2020-01-04 11:48] VITALS: TEMP 97.6
--- NOTE | 2020-01-04 12:30 | NM ---
Exam: Nuclear medicine cardiac stress with EF and wall motion HISTORY: Chest pain. COMPARISON: 08/11/2018 TECHNIQUE: 2 day protocol was utilized. The patient was administered 27 mm of technetium 99m sestamib i for rest imaging and 30 mCi of technetium 99M sestamibi is made for stress imaging. Cardiac gating was performed FINDINGS: Homogeneous distribution of the radiotracer in the left ventricle on the stress attenuation corrected images. No reversibility. No fixed defect End-diastolic volume is 64 mL End-systolic volume is 12 mm Cardiac gating: Normal wall motion and thickening. 82% ejection fraction IMPRESSION: 1. 82% ejection fraction. 2. No reversibility or fixed defect
[2020-01-04] MEDS ORDERED: NIFEdipine XL 60 MG TAB PO SCH (13:15)
--- NOTE | 2020-01-04 14:22 | DIS ---
DATE OF ADMISSION: 01/03/2020 DATE OF DISCHARGE: 01/04/2020 DISCHARGE DISPOSITION AND FOLLOWUP: The patient will be discharged to home and instructed to follow up with her primary care provider on the designated date. The patient was seen and examined on the day of discharge. Denies any new complaints. INPATIENT CONSULTS: None. BRIEF CLINICAL COURSE: The patient is a 59-year-old female with a past medical history significant for hypertension, hyperlipidemia, TIA, smoker, former cocaine abuser, who presents to the ER for acute onset of chest pain, 3.5 hours prior to arrival. The patient presented hypertensive with a blood pressure of 147/101 with a normal pulse, normal respirations, normal O2 sat, afebrile. EKG; normal sinus rhythm, no ST elevations. Chest x-ray; negative for any acute cardiopulmonary process. Troponins were negative x 3. BNP 11.4, TSH 1.1. Magnesium level 2.0. CBC unremarkable. UA unremarkable, UDS was positive for cocaine metabolites, COVID negative. The patient was given a full dose aspirin and admitted to the telemetry floor for further cardiac workup. The patient was made n.p.o. at midnight and underwent nuclear medicine cardiac stress test on 01/03 that showed no reversibility or fixed defects in the left ventricle. 82% ejection fraction. The patient continued to be chest pain free throughout her stay. The patient's blood pressure has been elevated, status post nuclear medicine stress test with systolic blood pressure in the 160s. Started the patient on Procardia XL 60 mg p.o. Good blood pressure control. Will be discharged to home with Procardia prescription. Will discontinue amlodipine 10mg home medication. FINAL DIAGNOSES: 1. Chest pain. 2. Cocaine abuse. 3. Hypertension. 4. Hyperlipidemia. 5. Tobacco abuse. 6. Glaucoma. DISCHARGE MEDICATIONS: New medication: Start nifedipine 60 mg p.o. daily. Continue home medications: 1. Fluoxetine 10 mg p.o. daily. 2. Atorvastatin 10 mg p.o. at bedtime. 3. Aspirin 81 mg p.o. daily. Discontinued medications: 1. Amlodipine 10 mg p.o. daily. DISCHARGE INSTRUCTIONS: The patient was counseled extensively on cocaine abuse and encouraged to quit. TIME SPENT: Total time coordinating discharge of this patient was 35 minutes. Job ID: [id number] [facility]
[2020-01-04 14:23] VITALS: BP 146/93
== END 2020-01-04 15:11 | disposition home or self-care (01) ==
LOC: ERS 09:15 → 2SW 11:30
PROVIDERS: ADMIT Internal Medicine; ATTEND Internal Medicine
DX: R07.9 Chest pain, unspecified (principal); R51 Headache; F14.10 Cocaine abuse, uncomplicated; I10 Essential (primary) hypertension; E78.5 Hyperlipidemia, unspecified; H40.9 Unspecified glaucoma; F17.210 Nicotine dependence, cigarettes, uncomplicated; E78.00 Pure hypercholesterolemia, unspecified; F32.9 Major depressive disorder, single episode, unspecified; Z79.899 Other long term (current) drug therapy; Z86.73 Personal history of transient ischemic attack (TIA), and cerebral infarction without residual deficits; Z88.8 Allergy status to other drugs, medicaments and biological substances
CPT/HCPCS: 36415; 36600; 71045; 78452; 80048; 80053; 80061; 80306; 81001; 82550; 83735; 83880; 84443; 84484; 85025; 87635; 90471; 90732; 93005; 93017; 96360; 96361; A9500; G0009; G0378; J0153; U0003

== ENCOUNTER 2020-04-28 15:25 | Emergency (ER) | payer BC, SELFPAY ==
[~2020-04-28 15:25] MED LIST: Iopamidol-370 76% 500 ML 1 ML ONE
[2020-04-28] MEDS ORDERED: Lidocaine 1% w/Epinephrine 1:100K 20 ML VIAL ONE (15:43)
[2020-04-28] MEDS ORDERED: Morphine 4 MG/ML VIAL ONE (15:56)
[2020-04-28] MEDS ORDERED: Ketorolac Tromethamine 30 MG/ML VIAL ONE (15:56)
[2020-04-28 16:16] LABS: #Basophils 0.1 thou/uL (0.0-0.2); #Eosinphils 0.3 thou/uL (0.0-0.7); #Lymphocytes 1.6 thou/uL (1.20-3.40); #Monocytes 0.5 thou/uL (0.11-0.59); #Neutrophils 3.2 thou/uL (1.40-6.50); %Basophils 1.2 % (0.0-1.0); %Eosinophils 5.6 % (0.0-10.0); %Lymphocytes 28.3 % (21.0-51.0); %Monocytes 9.4 % (0.0-10.0); %Neutrophils 55.5 % (42.0-75.0); Hemoglobin 12.4 g/dL (12.0-16.0); Mean Corpuscular HGB CONC 32.6 g/dL (32.0-36.0); Mean Corpuscular Hemoglobin 30.1 pg (27.0-31.0); Mean Corpuscular Volume 92.1 fL (78.0-98.0); Mean Platelet Volume 8.4 fL (7.4-10.4); Platelet Count 225 thou/uL (130-400); RBC Distribution Width 12.3 % (11.5-14.5); Red Blood Cell (RBC) Count 4.11 mill/uL (4.20-5.40); White Blood Cell (WBC) Count 5.7 thou/uL (4.8-10.8)
[2020-04-28 16:30] LABS: ALT (SGPT) 17 U/L (8-55); AST (SGOT) 20 U/L (5-34); Albumin 3.7 g/dL (3.5-5.0); Alkaline Phosphatase 92 U/L (40-110); Anion Gap 14 mmol/L (10-20); BUN (Urea Nitrogen) 15 mg/dL (9.8-20.1); Bilirubin, Total 0.3 mg/dL (0.2-1.2); Calc. Creatinine Clearance 0 mL/min (70-130); Calcium 8.9 mg/dL (7.8-10.44); Carbon Dioxide 25 mmol/L (22-29); Chloride 106 mmol/L (98-107); Globulin 2.6 g/dL (2.4-3.5); Glucose 111 mg/dL (70-105); Potassium 4.1 mmol/L (3.5-5.1); Protein, Total 6.3 g/dL (6.0-8.3); Sodium 141 mmol/L (136-145)
--- NOTE | 2020-04-28 17:24 | CT ---
CT ABDOMEN AND PELVIS WITH IV CONTRAST 04/28/2020 CLINICAL INFORMATION: Swelling and anterior abdominal wall. Abscess anterior abdominal wall. COMPARISON: None. Technique: Multiple contiguous axial CT images are obtained through the abdomen and pelvis with IV contrast. Cor onal reformatted images are provided. FINDINGS: Lower Chest: Minimal dependent bibasilar atelectasis. Vessels: Vascular calcifications in the abdominal aorta and iliac arteries. Abdomen: Portal vein:Patent Gallbladder: Within normal limits for CT imaging. Liver: within normal limits. Spleen: within normal limits. Pancreas: within normal limits. Adrenals: within normal limits. Kidneys: within normal limits. Bowel: Normal caliber. Appendix: The appendix is visualized and normal in caliber. Peritoneum: No ascites or free air; no fluid collection. Mesentery and Retroperitoneum: No enlarged mesenteric or retroperitoneal lymph nodes. Abdominal Wall: Supraumbilical fat-containing ventral abdominal wall hernia in the midline with infla mmatory stranding associated with the hernia as well as adjacent subcutaneous edema present. No loops of bowel are seen extending into the hernia defect. Pelvis: Reproductive Organs: The uterus is enlarged and has a lobulated appearance with multiple heterogeneou s and predominantly increased density masses largest measuring 4.5 cm most likely related to a fibroid uterus. Bladder: Incompletely distended but otherwise grossly within normal limits. Bones: Nonspecific 9 mm circumscribed lucency within the L3 vertebral body. This cannot be definitive ly characterized to represent a hemangioma on this examination. Nonemergent follow-up MRI is suggested for further evaluation. IMPRESSION: 1. Supraumbilical ventral abdominal wall fat-containing hernia with prominent inflammatory changes in volving this hernia. Subcutaneous soft tissue swelling is seen within the adjacent soft tissues anterior abdomen. 2. Indeterminate lytic lesion within the L3 vertebral body. This may potentially represent a hemangio ma but this is difficult to definitively characterize on this exam. No additional osseous lesion is seen. Follow-up MRI lumbar spine with and without IV contrast may be helpful for further evaluation. 3. Fibroid uterus. 4. Findings discussed Dr. Sales in the emergency department on 04/28/2020 at 1721 hours.
[2020-04-28 18:13] LABS: Bacteria/HPF None Seen HPF (None Seen); Bilirubin Negative (Negative); Blood, Urine Negative (Negative); Clarity Clear (Clear); Glucose, Urine (Dipstick) Normal (Negative); Ketone, Urine Negative (Negative); Leukocyte 25 Leu/uL (Negative); Nitrite Negative (Negative); Protein, Urine (Dipstick) Negative (Neg-Trace); RBC/HPF 0-3 HPF (0-3); Specific Gravity, Urine 1.059 (1.002-1.036); Squamous Epithelial 0-3 HPF (0-3); Urobilinogen Normal mg/dL (Less than 2); WBC/HPF 0-3 HPF (0-3)
== END 2020-04-28 19:09 | disposition home or self-care (01) ==
LOC: ERS 15:25
DX: K65.4 Sclerosing mesenteritis (principal); I10 Essential (primary) hypertension; E78.00 Pure hypercholesterolemia, unspecified; F17.210 Nicotine dependence, cigarettes, uncomplicated; Z79.899 Other long term (current) drug therapy
CPT/HCPCS: 36415; 74177; 80053; 81003; 81015; 85025; 87040; 87077; 87086; 96374; 96375; J1885; J2270; Q9967

== ENCOUNTER 2020-10-14 22:14 | Inpatient (IN) | payer SELFPAY ==
[2020-10-14 22:49] LABS: INR-International Normal Ratio 0.9; PTT 28.1 sec (22.9-36.1); Prothrombin Time 12.5 sec (12.0-14.7)
[2020-10-14 22:54] LABS: Hemoglobin 14.2 g/dL (12.0-16.0); Mean Corpuscular HGB CONC 32.8 g/dL (32.0-36.0); Mean Corpuscular Hemoglobin 29.2 pg (27.0-31.0); Mean Corpuscular Volume 89.2 fL (78.0-98.0); Mean Platelet Volume 8.4 fL (7.4-10.4); Platelet Count 254 thou/uL (130-400); RBC Distribution Width 12.2 % (11.5-14.5); Red Blood Cell (RBC) Count 4.87 mill/uL (4.20-5.40); White Blood Cell (WBC) Count 5.5 thou/uL (4.8-10.8)
[2020-10-14] MEDS ORDERED: Aspirin 325 MG TAB ONE (23:04)
[2020-10-14 23:13] LABS: Eosinophils 1 % (0-10); Lymphocytes 46 % (21-51); MDiff Complete? YES; Monocytes 3 % (0-10); Neutrophil 48 % (42-75); Reactive Lymphocytes 2 % (0-10)
[2020-10-14 23:45] LABS: ALT (SGPT) 32 U/L (8-55); AST (SGOT) 32 U/L (5-34); Albumin 4.2 g/dL (3.5-5.0); Alkaline Phosphatase 98 U/L (40-110); Anion Gap 17 mmol/L (10-20); BUN (Urea Nitrogen) 17 mg/dL (9.8-20.1); Bilirubin, Total 0.2 mg/dL (0.2-1.2); CK (CPK) 101 U/L (29-168); Calc. Creatinine Clearance 0 mL/min (70-130); Calcium 9.7 mg/dL (7.8-10.44); Carbon Dioxide 22 mmol/L (22-29); Chloride 103 mmol/L (98-107); Globulin 2.9 g/dL (2.4-3.5); Glucose 128 mg/dL (70-105); Potassium 3.9 mmol/L (3.5-5.1); Protein, Total 7.1 g/dL (6.0-8.3); Sodium 138 mmol/L (136-145)
[2020-10-15] MEDS ORDERED: Ondansetron ODT 4 MG TAB SL PRN (01:30)
[2020-10-15] MEDS ORDERED: Acetaminophen 325 MG TAB PO PRN (01:30)
[2020-10-15] MEDS ORDERED: Ondansetron PF 4 MG/2 ML Vial IVP PRN (01:30)
[2020-10-15] MEDS: Sodium Chloride 0.9% 1,000 ML IV SCH ×2 (02:24→14:15)
[2020-10-15 03:11] LABS: SARS-CoV-2 NAA Rapid Test Not Detected (NotDetected)
[2020-10-15 03:37] VITALS: BMI 16.9
[2020-10-15 08:04] LABS: Medtox Reader # READER 4
[2020-10-15 08:05] LABS: Amphetamine Not Detected (NotDetected); Barbiturates Screen Not Detected (NotDetected); Benzodiazepine Screen Not Detected (NotDetected); Cocaine Metabolite Screen Detected (NotDetected); Medtox Control Line Valid? VALID (VALID); Methadone Not Detected (NotDetected); Methamphetamine Not Detected (NotDetected); Opiate Screen Not Detected (NotDetected); Oxycodone Screen Not Detected (NotDetected); Phencyclidine (PCP) Not Detected (NotDetected); THC/Cannabinoid Screen Detected (NotDetected); Tricyclic Screen Not Detected (NotDetected)
[2020-10-15] MEDS: Aspirin 81 mg Enteric Coated Tablet PO SCH (10:01)
[2020-10-15] MEDS: Enoxaparin Sodium 40 MG/0.4 ML SYRINGE SC SCH (10:01)
[2020-10-15] MEDS ORDERED: diphenhydrAMINE 25 MG CAP PO PRN (18:59)
[2020-10-15] MEDS ORDERED: diphenhydrAMINE 25 MG CAP PO SCH (19:15)
[2020-10-15] MEDS ORDERED: Atorvastatin Calcium 40 MG TAB PO SCH (21:00)
[2020-10-16] MEDS ORDERED: Acetaminophen 650 MG Suppository PR PRN (00:54)
[2020-10-16 04:44] LABS: Hemoglobin 13.2 g/dL (12.0-16.0); Mean Corpuscular HGB CONC 33.5 g/dL (32.0-36.0); Mean Corpuscular Hemoglobin 30.3 pg (27.0-31.0); Mean Corpuscular Volume 90.6 fL (78.0-98.0); Mean Platelet Volume 8.4 fL (7.4-10.4); Platelet Count 248 thou/uL (130-400); RBC Distribution Width 12.3 % (11.5-14.5); Red Blood Cell (RBC) Count 4.35 mill/uL (4.20-5.40); White Blood Cell (WBC) Count 5.2 thou/uL (4.8-10.8)
[2020-10-16 05:00] LABS: Anion Gap 10 mmol/L (10-20); BUN (Urea Nitrogen) 12 mg/dL (9.8-20.1); Calc. Creatinine Clearance 63 mL/min (70-130); Calcium 8.9 mg/dL (7.8-10.44); Carbon Dioxide 26 mmol/L (22-29); Cardiac Risk 2.4 (Less than 4.5); Chloride 108 mmol/L (98-107); Cholesterol 170 mg/dl (< 200 Desired); Glucose 102 mg/dL (70-105); HDL Cholesterol 70 mg/dL (>60 Neg Risk); LDL Cholesterol, Calculated 85 mg/dL; Sodium 140 mmol/L (136-145); Triglycerides 77 mg/dL (Less than 150)
[2020-10-16 05:36] LABS: Band 4 % (5-11); Eosinophils 4 % (0-10); Lymphocytes 29 % (21-51); MDiff Complete? YES; Monocytes 6 % (0-10); Neutrophil 57 % (42-75)
[2020-10-16] MEDS: Aspirin 81 mg Enteric Coated Tablet PO SCH (08:50)
[2020-10-16] MEDS: Enoxaparin Sodium 40 MG/0.4 ML SYRINGE SC SCH (08:51)
[2020-10-16] MEDS ORDERED: NIFEdipine XL 60 MG TAB PO SCH (09:00)
[2020-10-16] MEDS ORDERED: Clopidogrel Bisulfate 75 MG TAB PO SCH (09:00)
[2020-10-16] MEDS ORDERED: Acetaminophen 325 MG TAB PO PRN (11:36)
[2020-10-16 13:02] VITALS: BP 173/95; TEMP 98.1
== END 2020-10-16 14:20 | disposition home or self-care (01) | DRG 69 ==
LOC: ERS 22:14 → 2SE 23:30
PROVIDERS: ADMIT Student in an Organized Health Care Education/Training Program; ATTEND Internal Medicine
DX: G45.9 Transient cerebral ischemic attack, unspecified (principal); I10 Essential (primary) hypertension; E78.5 Hyperlipidemia, unspecified; F17.210 Nicotine dependence, cigarettes, uncomplicated; F32.9 Major depressive disorder, single episode, unspecified; F41.9 Anxiety disorder, unspecified; I48.91 Unspecified atrial fibrillation; F14.10 Cocaine abuse, uncomplicated; R07.9 Chest pain, unspecified; Z20.822 Contact with and (suspected) exposure to COVID-19; H40.9 Unspecified glaucoma; Z88.8 Allergy status to other drugs, medicaments and biological substances; Z79.82 Long term (current) use of aspirin; Z71.6 Tobacco abuse counseling; Z71.51 Drug abuse counseling and surveillance of drug abuser; Z88.7 Allergy status to serum and vaccine
CPT/HCPCS: 36415; 70450; 70496; 70498; 70551; 80048; 80053; 80061; 80306; 82550; 84484; 85025; 85610; 85730; 90471; 90732; 93005; 93306; 95712; 95819; 95957; G0009; J1650; Q0163; Q9967; U0002; U0005

== ENCOUNTER 2021-04-18 15:44 | Emergency (ER) | payer OTHER, SELFPAY | END 2021-04-18 17:56 | disposition home or self-care (01) | LOC: ERS 15:44 | DX: S92.332A Displaced fracture of third metatarsal bone, left foot, initial encounter for closed fracture (principal); I10 Essential (primary) hypertension; E78.5 Hyperlipidemia, unspecified; Z86.73 Personal history of transient ischemic attack (TIA), and cerebral infarction without residual deficits; F17.210 Nicotine dependence, cigarettes, uncomplicated; W01.0XXA Fall on same level from slipping, tripping and stumbling without subsequent striking against object, initial encounter ==

== ENCOUNTER 2021-11-18 09:59 | Outpatient (CLI) | payer OTHER | END 2021-11-18 10:00 | disposition home or self-care (01) | LOC: BICRAD 09:59 | PROVIDERS: ATTEND Internal Medicine | DX: Z02.71 Encounter for disability determination (principal); M47.816 Spondylosis without myelopathy or radiculopathy, lumbar region; M19.072 Primary osteoarthritis, left ankle and foot | CPT/HCPCS: 72100 ==

== ENCOUNTER 2024-03-06 10:08 | Inpatient (IN) | payer MEDICARE, MEDICAID ==
[~2024-03-06 10:08] MED LIST changes: -Iopamidol-370 76% 500 ML 1 ML ONE; +Iopamidol-370 76% 500 ML MDV (1 ML CHARGE) ONE
[2024-03-06 10:31] LABS: #Basophils 0.07 10x3/uL (0.0-0.2); %Basophils 1.4 % (0.0-1.0); %Eosinophils 4.8 % (0.0-10.0); %Lymphocytes 29.8 % (21.0-51.0); %Monocytes 8.7 % (0.0-10.0); %Neutrophils 55.1 % (42.0-75.0); Hematocrit 40.7 % (36.0-47.0); Hemoglobin 13.3 g/dL (12.0-16.0); Mean Corpuscular HGB CONC 32.7 g/dL (32.0-36.0); Mean Corpuscular Hemoglobin 28.9 pg (27.0-31.0); Mean Corpuscular Volume 88.3 fL (78.0-98.0); Mean Platelet Volume 10.6 fL (7.4-10.4); Platelet Count 330 10x3/uL (130-400); RBC Distribution Width 14.7 % (11.5-14.5); Red Blood Cell (RBC) Count 4.61 mill/uL (4.20-5.40)
[2024-03-06] MEDS ORDERED: Aspirin Chewable 81 MG TAB ONE (11:22)
[2024-03-06 12:37] LABS: Bilirubin Negative (Negative); Blood, Urine Negative (Negative); CAUTI Indications for Culture Alt mental st,lethar; Clarity Clear (Clear); Glucose, Urine (Dipstick) Normal (Negative); Ketone, Urine Negative (Negative); Leukocyte 500 Leu/uL (Negative); Nitrite Negative (Negative); Protein, Urine (Dipstick) Negative (Neg-Trace); RBC/HPF None Seen HPF (0-3); Specific Gravity, Urine 1.043 (1.002-1.036); Squamous Epithelial 0-3 HPF (0-3); Urobilinogen Normal mg/dL (Less than 2); pH, Urine 5.5 (5.0-9.0)
[2024-03-06 12:42] LABS: Amphetamine Not Detected (NotDetected); Barbiturates Screen Not Detected (NotDetected); Benzodiazepine Screen Not Detected (NotDetected); Cocaine Metabolite Screen Detected (NotDetected); Methadone Not Detected (NotDetected); Methamphetamine Not Detected (NotDetected); Opiate Screen Not Detected (NotDetected); Oxycodone Screen Not Detected (NotDetected); Phencyclidine (PCP) Not Detected (NotDetected); THC/Cannabinoid Screen Detected (NotDetected); Tricyclic Screen Not Detected (NotDetected)
[2024-03-06 12:45] LABS: Bacteria/HPF Rare-Few HPF (None Seen)
[2024-03-06 12:46] LABS: Urine Culture Reflex Yes Yes
[2024-03-06 13:01] LABS: PTT 26.9 sec (22.9-36.1); Prothrombin Time 13.2 sec (12.0-14.7)
[2024-03-06 13:05] LABS: Anion Gap 12 mmol/L (10-20); BUN (Urea Nitrogen) 27 mg/dL (9.8-20.1); Calc. Creatinine Clearance 0 mL/min (70-130); Calcium 9.8 mg/dL (7.8-10.44); Carbon Dioxide 30 mmol/L (23-31); Chloride 99 mmol/L (98-107); Estimated GFR 77; Glucose 83 mg/dL (80-115); Potassium 3.3 mmol/L (3.5-5.1); Sodium 138 mmol/L (136-145)
[2024-03-06 14:25] VITALS: BMI 19.5
[2024-03-06 16:06] LABS: Troponin I Less than 0.010 ng/mL (< 0.028)
[2024-03-06 18:51] LABS: Troponin I Less than 0.010 ng/mL (< 0.028)
[2024-03-06] MEDS: Atorvastatin Calcium 40 MG TAB PO SCH (22:08)
[2024-03-07 04:45] LABS: Cardiac Risk 2.4 (Less than 4.5)
[2024-03-07] MEDS: Enoxaparin 40 MG (0.4 mL) SYRINGE SC SCH (09:24)
[2024-03-07] MEDS: Aspirin 81 mg Enteric Coated Tablet PO SCH (09:26)
[2024-03-07 10:17] VITALS: BMI 19.5
[2024-03-07] MEDS: Ketorolac Tromethamine 30 MG (1 mL) VIAL IVP SCH (18:06)
[2024-03-07 21:33] LABS: Magnesium 2.1 mg/dL (1.6-2.6)
[2024-03-08 04:34] LABS: Anion Gap 14 mmol/L (10-20); BUN (Urea Nitrogen) 27 mg/dL (9.8-20.1); Calc. Creatinine Clearance 61 mL/min (70-130); Calcium 9.1 mg/dL (7.8-10.44); Carbon Dioxide 27 mmol/L (23-31); Chloride 99 mmol/L (98-107); Estimated GFR 89; Glucose 99 mg/dL (80-115); Potassium 3.5 mmol/L (3.5-5.1); Sodium 136 mmol/L (136-145)
[2024-03-08 11:30] VITALS: BP 123/79; TEMP 97.6
[2024-03-09] MEDS ORDERED: Enoxaparin 30 MG (0.3 mL) SYRINGE SC SCH (09:00)
== END 2024-03-08 14:00 | disposition home or self-care (01) | DRG 93 ==
LOC: ERS 10:08 → ERHOLD 12:19 → 2SE 18:56 → OBSVTOIN 03-08 08:53
PROVIDERS: ADMIT Internal Medicine; ATTEND Internal Medicine
DX: R29.810 Facial weakness (principal); F14.10 Cocaine abuse, uncomplicated; E87.6 Hypokalemia; I10 Essential (primary) hypertension; E78.5 Hyperlipidemia, unspecified; F17.210 Nicotine dependence, cigarettes, uncomplicated; F32.A Depression, unspecified; H40.9 Unspecified glaucoma; Z88.8 Allergy status to other drugs, medicaments and biological substances; R06.02 Shortness of breath; R07.9 Chest pain, unspecified; Z79.899 Other long term (current) drug therapy; Z86.73 Personal history of transient ischemic attack (TIA), and cerebral infarction without residual deficits; Z71.6 Tobacco abuse counseling
CPT/HCPCS: 36415; 36416; 70450; 70496; 70498; 70551; 71045; 80048; 80061; 80306; 81001; 83735; 84484; 85025; 85610; 85730; 87077; 87086; 93005; 93306; 96372; 96374; G0378; J1650; J1885; Q9967